=== PATIENT | male | born 1970 | race Caucasian/White ===

== ENCOUNTER → 2019-07-30 12:38 | Outpatient (CLI) | payer OTHER, SELFPAY ==
[2019-07-24 10:04] VITALS: BMI 28.8
[2019-07-25 16:56] VITALS: BMI 28.8
--- NOTE | 2019-07-30 12:38 | STE_ITS ---
Reason For Study: Atrial Fibrillation Stress Results Protocol: Go Protocol Maximum Predicted HR: 171 bpm Target HR: 145 bpm % Maximum Predicted HR: 92 % DurationHeart Rate Stage (mm:ss) (bpm) BP Comment Baseline 67 130/86No Chest Pain Go Protocol Stage I 3:00 86 142/80No Chest Pain Go Protocol Stage II 3:00 103 132/64No Chest Pain Go Protocol Stage III 3:00 133 158/72No Chest Pain; Mild Dyspnea Go Protocol Stage IV 2:00 157 164/62No Chest Pain; Mild Dyspnea Recovery 96 132/64No Chest Pain Stress Duration: 11:00 mm:ss Maximum Stress HR: 157 bpm METS: 13 Baseline Echocardiogram Findings The estimated ejection fraction is 65 %. Stress Echo Wall motion Data Resting WM Intermediate WM Stress WM Resting Wall Motion Wall Motion Stress No regional wall motion No regional wall motion abnormalities noted. abnormalities noted. EKG Data The baseline ECG displays normal sinus rhythm. The patient exercised according to the regular Go protocol for a total duration of 11:00. The maximum heart rate attained was 171 beats per minute. This was 100% of maximum predicted heart rate. The patient exercised into stage 4 of the Go protocol. During stress, there were no ST or T wave changes noted to suggest ischemia. No clinical angina was noted. No arrhythmias noted. Interpretation Summary The estimated ejection fraction is 65 %. Normal, adequate, treadmill echocardiogram. Negative for ischemia by EKG and echocardiographic criteria. No anginal symptoms noted. No arrhythmias noted. Appropriate blood pressure response to exercise. Average exercise capacity for age. Patient tolerated procedure well. Final LVEF is 75%. Test terminated to fatigue. Ordering Physician: Mark Downey Referring Physician: Lisa Street Performed By: Doug Christiansen RCS
== END ==
PROVIDERS: PCP Nurse Practitioner; Referring Provider Internal Medicine Cardiovascular Disease; Visit Provider Internal Medicine Cardiovascular Disease
DX: R06.02 Shortness of breath (principal); I48.91 Unspecified atrial fibrillation; R53.83 Other fatigue; G47.33 Obstructive sleep apnea (adult) (pediatric)
CPT/HCPCS: 93017; 93350

== ENCOUNTER → 2019-10-08 08:23 | Outpatient (CLI) | payer OTHER, SELFPAY ==
[2019-07-25 16:56] VITALS: BMI 28.8
[2019-10-08 10:34] LABS: AST(SGOT) 15 U/L (15-37); Alanine Aminotransfer ALT/SGPT 23 U/L (16-61); Albumin, Serum 3.6 g/dL (3.2-5.0); Alkaline Phosphatase 76 U/L (45-117); Bilirubin, Direct 0.15 mg/dL (0.00-0.30); Cholesterol 189 mg/dL (200); Globulin 3.5 g/dL (2.2-4.2); High Density Lipoprotein 40 mg/dL; Protein, Total 7.1 g/dL (6.4-8.2); Triglycerides 112 mg/dL; Very Low Density Lipoprotein 22 mg/dL (5-40)
== END ==
PROVIDERS: PCP Nurse Practitioner; Referring Provider Internal Medicine Cardiovascular Disease; Visit Provider Internal Medicine Cardiovascular Disease
DX: E78.00 Pure hypercholesterolemia, unspecified (principal)
CPT/HCPCS: 36415; 80061; 80076

== ENCOUNTER → 2020-04-08 21:22 | Outpatient (CLI) | payer OTHER, SELFPAY ==
[2020-04-08 19:12] VITALS: BMI 26.9
[2020-04-08 22:02] LABS: Absolute Lymphocyte Count 1.56 X10^3/uL (0.83-4.51); Basophil# 0.04 X10^3/uL; Basophil% 0.8 % (0-1); Eosinophil# 0.12 X10^3/uL; Eosinophils% 2.3 % (0-5); Hematocrit 48.4 % (40-54); Hemoglobin 16.1 g/dL (13.0-16.5); Lymphocyte # 1.56 X10^3/ul (4.0); Lymphocyte % 29.4 % (19-41); Mean Corp Hgb Conc 33.3 g/dL (32-36); Mean Corpuscular Hgb 30.7 pg (27.0-32.0); Mean Corpuscular Volume 92.4 fL (80-94); Mean Platelet Vol. 11.5 fl (6.2-12.0); Monocyte# 0.57 X10^3/uL; Monocyte% 10.8 % (0-10); NRBC Flagged by Analyzer 0 % (0-5); Neutrophil % 56.5 % (47-70); Platelet Count 272 K/mm3 (150-450); RBC Distribution Width CV 11.9 % (11.6-14.6); RBC Distribution Width SD 40.7 fl (35.1-43.9); Red Blood Count 5.24 M/mm3 (4.6-6.2); White Blood Count 5.3 K/mm3 (4.4-11.0)
[2020-04-08 22:18] LABS: Vitamin B12 807 pg/mL (211-911)
[2020-04-08 22:24] LABS: AST(SGOT) 22 U/L (15-37); Alanine Aminotransfer ALT/SGPT 49 U/L (16-61); Albumin, Serum 3.9 g/dL (3.2-5.0); Alkaline Phosphatase 83 U/L (45-117); Anion Gap 6 (5-15); BUN 9 mg/dL (7-18); BUN/Creat Ratio 11.2 RATIO (10-20); Calcium,Total 8.8 mg/dL (8.5-10.1); Chloride 106 mmol/L (98-107); Cholesterol 186 mg/dL (200); EST Glomerular Filtration Rate 109 mL/min (>60); Est Glom Filt Rate - Afr Amer 132 mL/min (>60); Globulin 3.8 g/dL (2.2-4.2); Glucose 84 mg/dL (74-106); High Density Lipoprotein 54 mg/dL; PSA,Total - Annual Screen 1.55 ng/mL (0.00-4.00); Potassium 4.4 mmol/L (3.5-5.1); Protein, Total 7.7 g/dL (6.4-8.2); Sodium Level 139 mmol/L (136-145); Thyroid Stim Hormone (TSH) 2.19 uIU/mL (0.358-3.74); Triglycerides 81 mg/dL; Uric Acid 5.3 mg/dL (3.5-7.2); Very Low Density Lipoprotein 16 mg/dL (5-40)
[2020-04-11 14:37] LABS: Vitamin D 1,25-Dihydroxy 71.7 pg/mL (19.9-79.3)
== END ==
PROVIDERS: PCP Nurse Practitioner; Referring Provider Nurse Practitioner; Visit Provider Nurse Practitioner
DX: E55.9 Vitamin D deficiency, unspecified (principal); M25.50 Pain in unspecified joint; E78.00 Pure hypercholesterolemia, unspecified; Z86.79 Personal history of other diseases of the circulatory system; D64.9 Anemia, unspecified; E03.9 Hypothyroidism, unspecified; R35.0 Frequency of micturition
CPT/HCPCS: 80053; 80061; 82607; 82652; 84153; 84443; 84550; 85025; G0103